=== PATIENT | male | born 1960 | race Caucasian/White ===

== ENCOUNTER 2025-07-08 18:19 | Emergency (ER) | payer MEDICARE, SELFPAY ==
[2025-07-08 18:20] VITALS: BP 70/25
[2025-07-08 18:36] VITALS: BP 61/43
[2025-07-08 18:40] VITALS: BP 39/30
[2025-07-08 18:46] VITALS: BP 119/82
[2025-07-08 18:50] VITALS: BP 103/33
--- NOTE | 2025-07-08 19:11 | EDRN ---
per EMS - pt living in assisted living ([facility]) pt recently refused antibiotics for a UTI. at around 1715, pt c/o chest pain. medics arrived, gave 324 ASA, established R humeral head IO. while pulling into
ambulance bay, pt showed asystole on the diagnostic cardiac sonographer. CPR immediately started & 1mg of epi given by medics @ 1812. pt immediately brought into ED room 40.
CODE SUMMARY:
1814 - (+) pulses
1816 - 20 gauge IV L hand established by ANNE Mcrae
1818 - levo drip started at 10mcg/min
1822 - NSS drip wide open infusing
1822 - 1mg of epi given
1823 - 20mg of etomidate given
1825 - 160mg succinylcholine given
1825 - 1mg of atropine given
1826 - 1mg of atropine given
1826 - Dr Carrasquillo intubated patient, 8.0 ETT, 25 @ lip
1827 - (+) color change on CO2, (+) b/l breath sounds heard by Dr Carrasquillo
183 - dopamine drip hung @ 10mg
1833 - 1mg of epi given
183 - CPR started
183 - rhythm/pulse check
1836 - amp of bicarb given
183 - calcium given
1839 - Dr Villanueva establishing central line access in R femoral artery
1839 - dopamine drip increased to 20mg
184 - 1mg of epi given
184 - 1mg of atropine given
184 - CPR resumed
1846 - 1mg of epi given
184 - epi drip started @ 4
184 - rhythm/pulse check shows pulseless VFib
184 - 100J shock
1850 - 1mg of epi given
185 - rhythm/pulse check - pulseless VFib - CPR continued
185 - 150J shock, CPR continued
1852 - IV calcium given
185 - 1g of IV magnesium given
185 - amp of bicarb given
185 - rhythm/pulse check - pulseless VFib
1856 - 200J shock
185 - rhythm/pulse check - pulseless VFib
185 - 200J shock
1900 - 1mg of epi given
190 - rhythm/pulse check - pulseless VFib
1901 - 200J shock, CPR continued
190 - rhythm/pulse check - pulseless VFib
TIME OF : 1903
--- NOTE | 2025-07-08 19:11 | ED.GENMED ---
Addendum entered and electronically signed by Luiz Villanueva MD 07/08/25 23:55:
Right femoral central line placed emergently by myself during resuscitation. Triple-lumen catheter inserted and secured via Seldinger technique, without complication. 3 ports returning venous blood.
Original Note:
History of Present Illness
General
Chief Complaint: CODE
Source: ambulance crew
Exam Limitations: clinical condition
Time Seen by Provider: 07/08/25 18:44
Nursing documentation reviewed up to this point in time: agreed with
History of Present Illness
History of Present Illness:
Patient presents to ED from group home secondary to sudden onset of chest pain upon waking up from nap this afternoon. On the way to ED, patient became less responsive. CPR was initiated with patient being bagged, as patient was brought to
emergency department. Per paramedics, patient was recently transferred to rehab facility from [facility], after being treated for UTI. Since arriving at rehab facility, patient had refused antibiotics secondary to side effects for the
past [address] to the hospital, per paramedics, patient was consistently complaining of chest pain and back pain until he became unresponsive. No other information available at this time.
Review of Systems
Review of Systems
Allergies reviewed?: No
Unable to obtain full review of systems at this time due to: due to acuity
All Other Systems: Not applicable
Phy Exam
Physical Exam
Physical Exam:
Physical Exam
General: unresponsive. CPR in progress
Head: nc/at
Neck: no jvd
Heart: CPR in progress with Doppler detected right femoral pulse
Lungs: patient being bagged actively
Abdomen: no distention
Neuro: unresponsive to verbal or physical stimuli
Skin: warm to touch
Extremities: b/l LE edema noted with acewrap in place
Course
Orders/Labs/Results
Orders:
Orders
07/08/25 18:20
Amiodarone [Cordarone] 450 mg .ROUTE .STK-MED ONE
Atropine Sulfate [Atropine 0.1 mg/ml Syringe] 2 mg .ROUTE .STK-MED ONE
Calcium CHLORIDE [Calcium Chloride 10% Syringe] 2,000 mg .ROUTE .STK-MED ONE
Dopamine 800 mg in D5w 250 ml [DOPamine 800 MG-D5W 250 ML] 800 mg .ROUTE .STK-MED ONE
EPINEPHrine [Adrenalin 1 mg/10 ml] 10 mg .ROUTE .STK-MED ONE
Etomidate [Amidate] 40 mg .ROUTE .STK-MED ONE
Lidocaine HCl/Pf [Xylocaine] 50 mg .ROUTE .STK-MED ONE
Magnesium Sulfate 1 G/D5w [Magnesium Sulfate] 1 gm .ROUTE .STK-MED ONE
Sodium Bicarbonate 100 meq .ROUTE .STK-MED ONE
Succinylcholine Chloride [Anectine] 200 mg .ROUTE .STK-MED ONE
07/08/25 18:22
Electrocardiogram (*1) Urgent
Reason for Study: Chest Pain
EKG- Treatment ONCE
07/08/25 18:27
DOPamine 400 MG/D5W 250 ML [DOPamine 400 MG] 400 mg in 250 ml .ROUTE .STK-MED
07/08/25 18:22
07/08/25 18:22
Vital Signs
Initial and Last Documented VS:
Initial Vital Signs
BP
70/25
07/08/25 18:20
Last Documented Vital Signs
Pulse Resp BP Pulse Ox
143 61 103/33 84
07/08/25 19:02 07/08/25 19:02 07/08/25 18:50 07/08/25 18:54
Procedures
Intubations
Procedure completed by: Jimmy Carrasquillo
Method of Intubation: glidescope
Tube size (cm): 8.0
Placement confirmed by: auscutation and capnography
Breath sounds after intubation: equal
Intubation complications: no complications
MDM/Problems Addressed
MDM/Problems Addressed:
Resuscitation continued upon arrival, per ACLS protocol. Patient given multiple medications, i.e. epinephrine/atropine/Levophed infusion/dopamine infusion, with intermittent zoroastrianism of spontaneous pulse, each episode lasting less than 5
minutes. Patient intubated emergently with use of glide scope. During resuscitation, patient noted to enter into ventricular fibrillation rhythm, necessitating multiple defibrillation attempt, without success. Never at any point, patient regained
consciousness. At 19:04, decision made to pronounce patient.
Discussed with medical dermatologist's office, Gianna Hilliard, who will release the body to family
Awaiting arrival of family.
Discussed with spouse and multiple family members at bedside. All questions answered. Explained to family that medical dermatologist office has released the body to family. Family will contact their funeral attendant.
Critical care statement: A total of 40 minutes of critical care time was provided for this patient. This includes management of unstable vital signs, evaluation of the patient at bedside, reviewing the patient's pertinent medical records, review of
old EKGs and review of pertinent medical records. This time with separate from time utilized to perform the aforementioned documented procedures
*Pulse Oximetry
Patient hypoxic: not evaluated
*Critical Care Note
Total Time (30-74mins, 75-104mins- exclusive of procedures): 40 min
ED Attending Note
-
Portions of this chart may have been created with voice recognition software.� Occasional wrong word or��sound alike� substitutions may have occurred due to the inherent limitations of voice recognition software.
Discharge Plan
Departure
Patient Disposition:
Date of Disposition: 07/08/25
Time of Disposition: 19:12
Discharge Problem:
Cardiac arrest
Prescriptions:
No Action
atorvastatin 20 mg Tablet
20 mg PO QPM
cefadroxil 500 mg Capsule
1,000 mg PO BID
Rx Instructions:
start 07/01/25 x 9 days
baclofen 10 mg Tablet
10 mg PO QID
bisacodyl 10 mg Suppository
10 mg NC DAILY PRN (Reason: if MOM ineffective)
Fleet Enema 19-7 gram/118 mL Enema
118 ml NC DAILYPRN PRN (Reason: if bisacodyl ineffective)
furosemide 20 mg Tablet
20 mg PO DAILY
dalfampridine 10 mg Tablet Extended Release 12 Hr
10 mg PO Q12H
Hydrophilic Ointment Base(Fag) Ointment
1 ea TOPICAL HS
Rx Instructions:
apply to buttocks topically at bedtime for wound care
losartan 50 mg Tablet
50 mg PO DAILY
levothyroxine 100 mcg Tablet
100 mcg PO HS
Interventions
Interventions:
*Risk Screen - Suicide Last Done: 07/08/25 20:34
*General Assessment Last Done: 07/08/25 20:34
*Neglect/Abuse Screening Last Done: 07/08/25 20:34
*ED COVID-19 Vaccine History Last Done: 07/08/25 20:34
ED- Cardiac Assessment Last Done: 07/08/25 20:34
ED- Pulmonary Assessment Last Done: 07/08/25 20:35
Discharge Date and Time
Print Language: PORTUGUESE
--- NOTE | 2025-07-08 19:51 | RESPNOTE ---
Received text from ER Nurse at 1857- pt had coded again. Started bagging pt when I finally arrived down to pt's room. CPR ended at 190- code was called; pt .
== END 2025-07-08 19:04 | disposition expired ==
LOC: EMR 18:19
PROVIDERS: EMERGENCY PHYSICIAN Emergency Medicine; FAMILY PHYSICIAN Student in an Organized Health Care Education/Training Program
DX: I46.9 Cardiac arrest, cause unspecified (principal); I49.01 Ventricular fibrillation
CPT/HCPCS: 92950; 31500; 99291; 93005; 94002